=== PATIENT | male | born 1965 | race Hispanic/Latino ===

== ENCOUNTER 2024-11-11 16:32 | Inpatient (IN) | payer OTHER, BC ==
[~2024-11-11] VITALS: Ht 152.4 cm; Wt 68.3 kg
--- NOTE | 2024-11-11 17:03 | ERN ---
General Chief Complaint: Abdominal Pain Stated Complaint: ABDOMINAL PAIN Time Seen by MD: 16:36 Source: patient History of Present Illness Initial Comments Patient is a 59-year-old male coming in complaining of abdominal pain. Per patient he was seen by his PCP sent over to rule out appendicitis. Patient states he has a has a PCP evaluated at him because of the location of the pain in the right lower quadrant area concerns for appendicitis. Patient states that the pain began earlier today while moving furniture. No fever no chills nausea and vomiting patient is tolerating oral intake. Allergies: Coded Allergies: No Known Allergies (Unverified Allergy, Unknown, 11/11/24) Past Medical History Past Medical History: No Pertinent History Past Surgical History: None ROS Dictation CONSTITUTIONAL: No chills, no fever, no weakness, no diaphoresis, no malaise. HEAD/FACE: No signs of trauma. EENT: No eye pain, no blurred vision, no tearing, no double vision, no ear pain, no ear discharge, no nose pain, no nasal congestion, no throat pain, no throat swelling, no mouth pain. RESPIRATORY: No cough, no orthopnea, no SOB, no stridor, no wheezing. CARDIOVASCULAR: No chest pain, no edema, no palpitations, no syncope. GASTROINTESTINAL/ABDOMINAL: abdominal pain, no constipation, no diarrhea, no nausea, no vomiting. GENITOURINARY: No abnormal discharge, no dysuria, no frequent urination, no hematuria. No complaints of pain in the genitals. MUSCULOSKELETAL: No back pain, no gout, no joint pain, no joint swelling, no muscle pain, no muscle stiffness, no neck pain. INTEGUMENTARY: No change in color, no change in hair/nails, no dryness, no lesion, no lumps, no rash. NEUROLOGICAL/PSYCH: No anxiety, not depressed, no emotional problem, no headache, no numbness, no pre-existing deficit, no history of seizures, no tremors, no weakness. HEMATOLOGIC/LYMPHATIC: Not anemic, no history of blood clots, no apparent bleeding, no bruising, glands not swollen. All Systems Negative, Except as Noted. Physical Exam Physical Exam Dictation VITAL SIGNS: Reviewed. GENERAL APPEARANCE: Alert, oriented x3, no acute distress, obese. HEAD AND FACE: Non-traumatic. EYES: PERRL, pink conjunctivas, eyelid no trauma, anterior chamber clear. EARS: Pinnas intact and no signs of trauma or erythema. Ear canals clear and no discharge. TMs no erythema. NOSE: No discharge, no bleeding. OROPHARYNX: Mouth normal, teeth no caries, tongue pink. Pharynx clear, no erythema. Tonsils no exudates, no abscesses noted. Mucous membrane moist. NECK: Supple, non-tender, no thyromegaly, no masses, no JVD, no bruits. BREAST: Deferred. CHEST: No tenderness, no crepitus, no paradoxical movement, no retractions. LUNGS: Clear, well-ventilated, symmetric, no rales, no wheezing, no rhonchi, no stridor, good breath sounds bilaterally. HEART: Regular rate, regular rhythm, no murmur, no gallops. VASCULAR: No peripheral edema. ABDOMEN: Soft, positive bowel sounds, nondistended, no guarding, right lower quadrant tenderness, no rebound, no masses no hepatomegaly, no splenomegaly, no Koenig's sign, no hernias. RECTAL: Deferred. GENITAL: Deferred. NEUROLOGICAL: Normal speech, gross motor function intact, gross sensory function intact. MUSCULOSKELETAL: Neck nontender, full range of motion, back nontender, full range of motion. EXTREMITIES: Nontender, full range of motion. SKIN: Color pink, dry, no turgor, no rash, no lacerations, no abrasions, no contusions. LYMPHATICS: Deferred. Results Laboratory and Microbiology Lab and Micro Result Laboratory Tests Test 11/11/24 17:35 White Blood Count 9.9 K/uL (4.8-10.8) Red Blood Count 5.42 MIL/uL (4.50-6.20) Hemoglobin 15.8 g/dL (14.0-18.0) Hematocrit 47.6 % (42-54) Mean Corpuscular Volume 87.8 fL (79-99) Mean Corpuscular Hemoglobin 29.2 pg (27.0-33.0) Mean Corpuscular Hemoglobin Concent 33.2 g/dL (32.0-36.0) Red Cell Distribution Width 13.9 % (11.0-15.5) Platelet Count 262 K/uL (130-400) Mean Platelet Volume 10.8 fL (7.5-10.5) H Immature Granulocyte % (Auto) 0.3 % (0-1) Neutrophils (%) (Auto) 57.4 % (40.0-77.0) Lymphocytes (%) (Auto) 30.8 % (21.0-51.0) Monocytes (%) (Auto) 8.8 % (3.0-13.0) Eosinophils (%) (Auto) 1.8 % (0.0-8.0) Basophils (%) (Auto) 0.9 % (0.0-5.0) Neutrophils # (Auto) 5.7 K/uL (1.8-7.7) Lymphocytes # (Auto) 3.0 K/uL (1.0-4.8) Monocytes # (Auto) 0.9 K/uL (0.1-1.0) Eosinophils # (Auto) 0.18 K/uL (0.00-0.70) Basophils # (Auto) 0.09 K/uL (0.00-0.20) Absolute Immature Granulocyte (auto 0.03 K/uL (0-1) Nucleated Red Blood Cells 0.0 % (0.0-0.19) Sodium Level 138 mmol/L (136-145) Potassium Level 4.4 mmol/L (3.5-5.1) Chloride Level 100 mmol/L (101-111) L Carbon Dioxide Level 31 mmol/L (21-32) Blood Urea Nitrogen 20 mg/dL (7-18) H Creatinine 1.1 mg/dL (0.5-1.3) Glomerular Filtration Rate Calc 76 mL/min (>90) Random Glucose 92 mg/dL (70-105) Total Calcium 9.3 mg/dL (8.5-10.1) Labs Reviewed?: Yes EKG/XRAY/US/CT/MRI CT Scan Comment [place] [address] [place] [id number] IMAGING REPORT Signed PATIENT: CATERINA SHAH MR#: [id number] : 1965 SEX: M AGE: 59 LOCATION: [facility] ORDER 46 STATUS: REG ER REPORT#: [id number] SERVICE 45 REASON: rlq pain ORDERING PHYSICIAN: MAIA THOMAS MD PROCEDURE: ABD PEL WO - CT ABDOMEN/PELVIS W/O CONTRAST EXAM: CT Abdomen with or without Intravenous Contrast CLINICAL HISTORY: 59 year old male with right lower quadrant pain. TECHNIQUE: Axial computed tomography images of the abdomen with or without intravenous contrast. Dose reduction technique was used including one or more of the following: automated exposure control, adjustment of mA and kV according to patient size, and/or iterative reconstruction. CONTRAST: NONE COMPARISON: None provided. FINDINGS: LUNG BASES: No basilar airspace consolidation or pleural effusion. LIVER: Unremarkable. No focal lesions. GALLBLADDER AND BILE DUCTS: Unremarkable. No calcified stone. No ductal dilation. PANCREAS: Unremarkable. SPLEEN: Unremarkable. ADRENAL GLANDS: Unremarkable. KIDNEYS AND URETERS: Unremarkable. No hydronephrosis or nephrolithiasis. STOMACH AND BOWEL: No obstruction. No wall thickening. No CT evidence of colitis or acute diverticulitis. APPENDIX: Thickening of the arrington of the appendix with surrounding inflammation and an appendicolith seen, consistent with acute appendicitis. Negative for perforation or abscess. PERITONEUM: No free fluid. No free air. LYMPH NODES: No lymphadenopathy. VASCULATURE: No aortic aneurysm. ABDOMINAL WALL AND SOFT TISSUES: Unremarkable. BONES: No acute osseous abnormality. IMPRESSION: 1. Acute appendicitis with appendicolith. 2. No perforation or abscess. /[place] DICTATED BY: RODDY HUDSON MD DATE: 11/11/241900 ELECTRONICALLY SIGNED BY: RODDY HUDSON MD DATE: 11/11/241900 [facility] MDM: Differential diagnosis: Acute appendicitis, abdominal pain, gastritis, Rationale: Tests considered and ordered secondary to shared decision making include: Previous outside records reviewed: Old ER visits. Risk of complication and/or morbidity or mortality of patient management: None Medications-Per medication reconciliation Need for hospitalization: Patient does meet criteria for hospitalization. Need for emergency major/minor surgery: No There are no social concerns with this patient. Prescription drug management Prescriptions will include symptomatic care Patient's prior external medical records from other ER visits were reviewed by me as indicated. Prior testing and results from previous visits were reviewed. Prior tests were taken into account with medical decision making and resource utilization, independent historian/historians were used to obtain complete medical history. I independently interpreted the test that were performed, results were reviewed by me and considered findings on radiology if ordered. Medical management and examination interpretation discussions were had by me with other qualified healthcare professionals as indicated for the patient's care. Patient is a 59-year-old gentleman coming in complaining of right lower quadrant pain CT disclose acute appendicitis with appendicolith. Spoke to surgeon on-call Dr. Fagan who accepts patient for surgery in the a.m., patient will be admitted under the care of hospitalist group for ongoing management ED Course Orders Procedure Category Date Status Time Cbc With Differential LAB 11/11/24 Complete 16:46 Urinalysis Profile LAB 11/11/24 Logged 16:46 0.9%Nacl 1000ml (Ns PHA 11/11/24 Complete 1000ml) 17:00 Basic Metabolic Panel LAB 11/11/24 Complete 16:46 Ct Abdomen/Pelvis W/O CT 11/11/24 Resulted Contrast 16:46 Zosyn 3.375gm+Ns 50ml PHA 11/11/24 Complete (Zosyn 3.375gm+Ns 18:06 Zosyn 3.375gm+Ns 50ml PHA 11/11/24 Complete (Zosyn 3.375gm+Ns 18:30 Current Medications Medications (Trade) Dose Ordered Sig/Colleen Route PRN Reason Start Time Stop Time Status Last Admin Dose Admin Piperacillin Sod/ Tazobactam Sod 50 ml @ As Directed STK-MED ONCE .ROUTE 11/11/24 18:06 11/11/24 18:06 DC 11/11/24 18:12 Piperacillin Sod/ Tazobactam Sod (Zosyn 3.375gm+NS 50ml) 3.375 gm ONCE ONCE IV 11/11/24 18:30 11/11/24 18:07 DC Sodium Chloride 1,000 ml @ 0 mls/hr ONCE ONCE IV 11/11/24 17:00 11/11/24 17:01 DC 11/11/24 18:12 Vital Signs Date Time Temp Pulse Resp B/P (MAP) Pulse Ox O2 Delivery O2 Flow Rate FiO2 11/11/24 16:34 97.7 74 20 127/84 99 Room Air DX & DISP Disposition: Inpatient Decision to Admit Time: 18:19 Departure Impression: Primary Impression: Appendicitis, acute Condition: Stable Referrals: SELF,REFERRAL (PCP) MAIA THOMAS MD Nov 11, 2024 17:03
[2024-11-11 17:41] LABS: IMMATURE GRANULOCYTE ABSOLUTE 0.03 K/uL (0-1); NUCLEATED RED BLOOD CELLS 0.0 % (0.0-0.19); PLATELET COUNT (AUTO) 262 K/uL (130-400); RED BLOOD CELL COUNT(AUTO) 5.42 MIL/uL (4.50-6.20); RED CELL DISTRIBUTION WIDTH 13.9 % (11.0-15.5); WHITE BLOOD COUNT (AUTO) 9.9 K/uL (4.8-10.8)
--- NOTE | 2024-11-11 18:02 | HMCIMG ---
EXAM: CT Abdomen with or without Intravenous Contrast CLINICAL HISTORY: 59 year old male with right lower quadrant pain. TECHNIQUE: Axial computed tomography images of the abdomen with or without intravenous contrast. Dose reduction technique was used including one or more of the following: automated exposure control, adjustment of mA and kV according to patient size, and/or iterative reconstruction. CONTRAST: NONE COMPARISON: None provided. FINDINGS: LUNG BASES: No basilar airspace consolidation or pleural effusion. LIVER: Unremarkable. No focal lesions. GALLBLADDER AND BILE DUCTS: Unremarkable. No calcified stone. No ductal dilation. PANCREAS: Unremarkable. SPLEEN: Unremarkable. ADRENAL GLANDS: Unremarkable. KIDNEYS AND URETERS: Unremarkable. No hydronephrosis or nephrolithiasis. STOMACH AND BOWEL: No obstruction. No wall thickening. No CT evidence of colitis or acute diverticulitis. APPENDIX: Thickening of the arrington of the appendix with surrounding inflammation and an appendicolith seen, consistent with acute appendicitis. Negative for perforation or abscess. PERITONEUM: No free fluid. No free air. LYMPH NODES: No lymphadenopathy. VASCULATURE: No aortic aneurysm. ABDOMINAL WALL AND SOFT TISSUES: Unremarkable. BONES: No acute osseous abnormality. IMPRESSION: 1. Acute appendicitis with appendicolith. 2. No perforation or abscess. /[place]
[2024-11-11 18:04] LABS: CREATININE 1.1 mg/dL (0.5-1.3); GLOMERULAR FILTR. RATE CALC 76.0 mL/min (>90); GLUCOSE,RANDOM 92.0 mg/dL (70-105); SODIUM SERUM 138.0 mmol/L (136-145); UREA NITROGEN, BLOOD 20.0 mg/dL (7-18)
[2024-11-11] MEDS: ZOSYN 3.375GM+NS 50ML 50 ML ONE (18:12)
[2024-11-11] MEDS: 0.9%NACL 1000ML 1,000 ML IV ONE (18:12)
--- NOTE | 2024-11-11 18:26 | HP ---
History of Present Illness Reason for Visit: abdominal pain History of Present Illness Mr. Boo is a 59-year-old male that was seen and examined today on 11/11/2024. Patient is a good historian of personal health Patient states that he came emergency department with a chief complaint of abdominal pain. Onset was today at 8:00 a.m.. Location is right lower quadrant. Duration is on and off. Character is described as sharp. 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 There was no alleviating factors. Patient denies any associated nausea, vomiting or fever. Today in the emergency department CBC unremarkable, chemistry unremarkable, no urinalysis has been collected or sent to lab CT of abdomen and pelvis suggests appendicitis. Emergency room physician contacted general surgeon on-call, Dr. Fagan who requested for patient to be admitted under hospitalist service and he will surgically evaluated in the morning. Past Medical History ADDITIONAL PAST MEDICAL HISTORY: [Denies] SOCIAL HISTORY: [Negative for smoking, alcohol use, drug use, patient lives with his , Bárbara boo. Patient is typically independent of all his ADLs. Patient denies difficulty pain is bills.] SURGICAL HISTORY: [Denies] Review of Systems General: No Fever, No Chills, No Night Sweats, No Fatigue, No Malaise, No Appetite, No Other HEENT: No Head Aches, No Visual Changes, No Eye Pain, No Ear Pain, No Dysphasia, No Sinus Congestion, No Post Nasal Drip, No Sore Throat, No Other Pulmonary: No Dyspnea, No Cough, No Pleuritic Chest Pain, No Other Cardiovascular: No: Chest Pain, Palpitations, Orthopnea, Paroxysmal Noc. Dyspnea, Edema, Lt Headedness, Other Gastrointestinal: Abdominal Pain; No: Nausea, Vomiting, Diarrhea, Constipation, Melena, Hematochezia, Other Genitourinary: No Dysuria, No Frequency, No Incontinence, No Hematuria, No Retention, No Other Musculoskeletal: No: other, neck pain, shoulder pain, arm pain, back pain, hand pain, leg pain, foot pain Skin: No Urticaria, No Rash, No Other Neurological: No: Weakness, Numbness, Incoordination, Change in speech, Confusion, Seizures, Other Allergies: Coded Allergies: No Known Allergies (Unverified Allergy, Unknown, 11/11/24) No Active Prescriptions or Reported Meds Exam Vital Signs Vital Signs Date Time Temp Pulse Resp B/P (MAP) Pulse Ox O2 Delivery O2 Flow Rate FiO2 11/11/24 18:18 98.2 67 16 133/79 98 Room Air* 0 21 General Appearance: Alert, Oriented X3, Cooperative, No acute distress HEENT: Atraumatic, PERRLA, EOMI, Mucous membr. moist/pink Respiratory: Clear to auscultation, Normal air movement, NL respiratory effort Cardiovascular: Regular rate, Regular rhythm, Normal S1, Normal S2 Abdominal: Normal bowel sounds, Soft, Other (Positive right lower quadrant tenderness) Skin: No significant lesion Neuro: Normal gait, Normal speech, Strength at 5/5 X4 ext, Sensation intact, Cranial nerves 3-12 NL Psych/Mental Status: Mental status NL, Mood NL, Thoughts/Content NL Assessment/Plan ASSESSMENT: [ Acute appendicitis, POA] PLAN: [ Admit patient to medical floor as inpatient status. Patient will be followed by General surgery Service, Dr. Fagan Keep patient NPO IV fluid maintenance therapy lactated Ringer's at 75 mL/HR Check preprocedure labs, CBC, BMP, magnesium, phosphorus, PTT, UA, type and screen, EKG, CXR As needed analgesia with morphine Empiric antibiotic therapy with Zosyn GI prophylaxis, famotidine DVT prophylaxis, Ludwin's and SCDs ADVANCED CARE PLANNING 1. Which of the following were discussed? Hospice Care - Yes Therapeutic options - yes Advance Directives - Yes - patient states he does not have any advance directives in place at this time, however his can make decisions for him if he becomes unable. Other discussions - patient wishes to remain a full code at this time 2. Discussed with who? Patient 3. Voluntary nature of this service was explained to the patient? Yes 4. Amount of time spent - ___16 minutes____ 5. Reviewed by Physician? (if this service was performed by NPP) Yes This document was generated in part using voice recognition software, occasional wrong word or sound alike substitutions may have occurred due to the inherent limitations of voice recognition software. Read the chart carefully and recognize using context, where the substitutions have occurred. Although every effort was made to edit the content, gemologist and typing errors may occur ATTESTATION BY PHYSICIAN I have seen and examined the patient. I reviewed the documentation, medical decision making, and treatment plan as noted by the mid-level provider above. I agree with the findings and plan of care. ] JOSE GARCIA [facility] Nov 11, 2024 18:26
[2024-11-11] MEDS ORDERED: ZOSYN 3.375GM +NS 50ML IV ONE (18:30)
[2024-11-11] MEDS ORDERED: ZOSYN 3.375GM +NS 50ML IV SCH (18:30)
[2024-11-11] MEDS: LACTATED RINGERS 1000ML 1,000 ML IV SCH (18:54)
[2024-11-11 20:28] LABS: APPEARANCE,URINE CLEAR (CLEAR); GLUCOSE, URINE (UA) NEGATIVE (NEGATIVE); LEUKOCYTE ESTERASE ,URINE NEGATIVE Leu/uL (NEGATIVE); NITRATE,URINE NEGATIVE (NEGATIVE); OCCULT BLOOD,URINE +- (TRACE) (NEGATIVE)
[2024-11-11 20:33] LABS: ADD UA MICROSCOPIC YES
--- NOTE | 2024-11-11 22:17 | NUR ---
REPORT GIVEN TO NURSE LISA, ALL QUESTIONS ANSWERED AT THIS TIME
[2024-11-11 22:30] VITALS: BP 128/84; PULSE 58; RESP 20; TEMP 97.7
[2024-11-11 23:12] VITALS: O2SAT 99
[2024-11-12] VITALS (29 sets, daily range): BP systolic 100–146; BP diastolic 59–91; PULSE 50–93; RESP 10–18; TEMP 97.1–99; O2SAT 97
[2024-11-12] MEDS: ZOSYN 3.375GM +NS 50ML IV SCH (02:26)
[2024-11-12 06:16] LABS: IMMATURE GRANULOCYTE ABSOLUTE 0.02 K/uL (0-1); NUCLEATED RED BLOOD CELLS 0.0 % (0.0-0.19); PLATELET COUNT (AUTO) 247 K/uL (130-400); RED BLOOD CELL COUNT(AUTO) 5.15 MIL/uL (4.50-6.20); RED CELL DISTRIBUTION WIDTH 13.8 % (11.0-15.5); WHITE BLOOD COUNT (AUTO) 7.8 K/uL (4.8-10.8)
[2024-11-12 06:23] LABS: CREATININE 1.1 mg/dL (0.5-1.3); GLOMERULAR FILTR. RATE CALC 76.0 mL/min (>90); GLUCOSE,RANDOM 98.0 mg/dL (70-105); PHOSPHORUS 4.3 mg/dL (2.5-4.9); SODIUM SERUM 139.0 mmol/L (136-145); UREA NITROGEN, BLOOD 15.0 mg/dL (7-18)
--- NOTE | 2024-11-12 06:33 | EKG ---
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
[2024-11-12 06:57] LABS: INR 0.98 (0.85-1.15)
--- NOTE | 2024-11-12 07:23 | HMCIMG ---
EXAM: CR Chest, single view CLINICAL HISTORY: Preprocedural COMPARISON: Prior radiograph dated 18 April 2010. FINDINGS: The lungs show no infiltrate or other acute findings. No pleural effusion or pneumothorax. The cardiomediastinal silhouette is within normal limits. No acute osseous abnormality. IMPRESSION: No acute cardiopulmonary pathology is evident. Compared to the prior study, there is no significant interval change. /[place]
[2024-11-12] MEDS: FAMOTIDINE 20MG VIAL IV SCH (08:42)
--- NOTE | 2024-11-12 10:11 | NUR ---
DCP:HOME Pt currently lives with his Bárbara [id number]. Pt does not report having any DME, home health, or provider services. Pt states that he is able to complete ADLs independently. PCP is Dr. Higinio Arshad and [facility] any [facility] needs. At [place] pt will want to go home and family can assist with transportation. Addendum: 11/12/24 at 1015 by WILMAR UPTON SS Amended: Links added.
--- NOTE | 2024-11-12 11:34 | PN ---
[facility] PROGRESS NOTE Date of Service: Nov 12, 2024 Time of Service: 11:32 SUBJECTIVE: [ ] Patient states that he came emergency department with a chief complaint of abdominal pain. Onset was today at 8:00 a.m.. Location is right lower quadrant. Duration is on and off. Character is described as sharp. 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 There was no alleviating factors. Patient denies any associated nausea, vomiting or fever. Workup in ED was consistent for appendicitis. Dr. Fagan is planning to schedule him for surgery today. Discussed the risk in benefits of surgery verbalized understanding. Encourage early ambulation and deep breathing postprocedure verbalized understanding REVIEW OF SYSTEMS CONSTITUTIONAL: Denies fevers, chills, or night sweats. No unintentional weight loss reported. NEUROLOGICAL: Denies headache, amaurosis fugax, motor weakness, sensory deficit, vertigo/spinning sensation, gait abnormalities, or tremors. ENT: No hearing loss, otalgia, otorrhea, rhinitis, rhinorrhea, hoarseness, or sore throat. CARDIOVASCULAR: Denies any exertional angina, dyspnea on exertion, orthopnea, paroxysmal nocturnal dyspnea, palpitations, life-threatening arrhythmias, claudication. PULMONARY: Denies any shortness of breath, cough, phlegm/sputum, hemoptysis, pleuritic chest pain. SLEEP: Denies morning headaches, daytime somnolence or napping. Denies difficulty falling asleep, staying asleep, waking from sleep. Denies knowledge of snoring. GASTROINTESTINAL: Denies any type of dysphagia to either liquids or solids. Denies nausea, vomiting, pyrosis, early satiety, abdominal pain, diarrhea, constipation, or changes in stool consistency or caliber. Denies coffee-ground emesis, hematemesis, hematochezia, or melanotic stools. GENITOURINARY: Denies frequency, urgency, nocturia, hematuria or incontinence (Storage/Irritative symptoms.) Low urinary stream, straining to void, urinary intermittency or hesitancy, splitting of the voiding stream, terminal dribbling. ENDOCRINOLOGIC: Denies polyuria, polydipsia, polyphagia or heat/cold intolerances. HEMATOLOGIC: Denies thrombophilia/previous clots, or coagulopathy/bleeding disorders. ONCOLOGIC: Denies personal history of malignancy. DERMATOLOGIC: Denies rashes or pruritus. PSYCHIATRIC: Denies any suicidal or homicidal ideation. Denies hallucinations. PHYSICAL EXAM GENERAL APPEARANCE: The patient is awake, alert, and oriented, in no acute cardiopulmonary distress. NEUROLOGICAL: Cranial nerves II-XII grossly intact. Motor is 5/5 in bilateral upper and lower extremities proximal to distal. No sensory deficits. HEENT: Face is symmetric. Pupils are equal and reactive. Extraocular movements are intact. NECK: Supple. No JVD. No thyromegaly. No submental, submandibular, pre- /postauricular, occipital or supraclavicular lymphadenopathy. CHEST: Normal chest expansion. No Telemetry. LUNGS: Absence of any rales, rhonchi or any wheezing. CARDIOVASCULAR: Regular. S1 and S2 normal. No appreciable rubs, murmurs or gallops. ABDOMEN: Soft, nontender, and nondistended. There is no rebound, voluntary guarding, or rigidity. : Deferred. No Hopper. EXTREMITIES: Non-edematous and not cyanotic. No clubbing. Good capillary refill. SKIN: No skin breakdown. Vital Signs (last 8hr) Date Time Temp Pulse Resp B/P (MAP) Pulse Ox O2 Delivery O2 Flow Rate FiO2 11/12/24 11:05 97.2 72 18 115/71 99 Room Air 11/12/24 08:02 97 Room Air* 0 21 11/12/24 07:48 97.5 71 18 111/67 97 Room Air LABS: Laboratory: Test 11/12/24 05:59 11/11/24 20:14 Range/Units White Blood Count 7.8 4.8-10.8 K/uL Red Blood Count 5.15 4.50-6.20 MIL/uL Hemoglobin 14.9 14.0-18.0 g/dL Hematocrit 45.0 42-54 % Mean Corpuscular Volume 87.4 79-99 fL Mean Corpuscular Hemoglobin 28.9 27.0-33.0 pg Mean Corpuscular Hemoglobin Concent 33.1 32.0-36.0 g/dL Red Cell Distribution Width 13.8 11.0-15.5 % Platelet Count 247 130-400 K/uL Mean Platelet Volume 11.2 H 7.5-10.5 fL Immature Granulocyte % (Auto) 0.3 0-1 % Neutrophils (%) (Auto) 54.3 40.0-77.0 % Lymphocytes (%) (Auto) 34.6 21.0-51.0 % Monocytes (%) (Auto) 7.2 3.0-13.0 % Eosinophils (%) (Auto) 2.7 0.0-8.0 % Basophils (%) (Auto) 0.9 0.0-5.0 % Neutrophils # (Auto) 4.2 1.8-7.7 K/uL Lymphocytes # (Auto) 2.7 1.0-4.8 K/uL Monocytes # (Auto) 0.6 0.1-1.0 K/uL Eosinophils # (Auto) 0.21 0.00-0.70 K/uL Basophils # (Auto) 0.07 0.00-0.20 K/uL Absolute Immature Granulocyte (auto 0.02 0-1 K/uL Nucleated Red Blood Cells 0.0 0.0-0.19 % Prothrombin Time 10.4 9.6-11.6 SEC Prothromb Time International Ratio 0.98 0.85-1.15 Activated Partial Thromboplast Time 30.3 26.3-35.5 SEC Sodium Level 139 136-145 mmol/L Potassium Level 4.0 3.5-5.1 mmol/L Chloride Level 105 101-111 mmol/L Carbon Dioxide Level 26 21-32 mmol/L Blood Urea Nitrogen 15 7-18 mg/dL Creatinine 1.1 0.5-1.3 mg/dL Glomerular Filtration Rate Calc 76 >90 mL/min Random Glucose 98 70-105 mg/dL Total Calcium 8.4 L 8.5-10.1 mg/dL Phosphorus Level 4.3 2.5-4.9 mg/dL Magnesium Level 2.30 1.80-2.40 mg/dL Urine Color COLORLESS YELLOW Urine Appearance CLEAR CLEAR Urine pH 6.0 5.0-8.0 Urine Specific [place] 1.008 1.001-1.031 Urine Protein NEGATIVE NEGATIVE mg/dL Urine Glucose (UA) NEGATIVE NEGATIVE mg/dL Urine Ketones NEGATIVE NEGATIVE mg/dL Urine Occult Blood +- (TRACE) H NEGATIVE Urine Nitrate NEGATIVE NEGATIVE Urine Bilirubin NEGATIVE NEGATIVE mg/dL Urine Urobilinogen 0.2 0.2-1.0 mg/dL Urine Leukocyte Esterase NEGATIVE NEGATIVE Ryan/uL Urine RBC 2-5 H 0-1 /HPF Urine WBC 0-1 0-1 /HPF Urine Bacteria RARE None Seen /HPF Current Medications Medications (Trade) Dose Ordered Sig/Colleen Route PRN Reason Start Time Stop Time Status Last Admin Dose Admin Acetaminophen (TYLenol 325MG TAB) 650 mg Q6H PRN PO TEMPERATURE GREATER THAN 101.5 11/11/24 20:00 12/11/24 19:59 Acetaminophen (TYLenol 650MG SUPPOSITORY) 650 mg Q6H PRN RC MILD PAIN (1-3) 11/11/24 20:00 12/11/24 19:59 Famotidine (Pepcid 20mg Vial) 20 mg DAILY IV 11/12/24 09:00 12/12/24 08:59 11/12/24 08:42 20 MG Hydralazine HCl (APRESOLine 20MG INJ) 10 mg Q6H PRN IV For:SBP above 160;DBP above 90 11/11/24 20:00 12/11/24 19:59 Lactated Ringer's 1,000 ml @ 75 mls/hr [id number] IV 11/11/24 18:30 12/11/24 18:29 11/12/24 08:44 75 MLS/HR Morphine Sulfate (morPHINE 2MG SYG) 2 mg Q4H PRN IVP SEVERE PAIN (7-10) 11/11/24 20:00 11/18/24 19:59 Ondansetron HCl (zoFRAN 4MG INJ) 4 mg Q6H PRN IV NAUSEA/VOMITING 11/11/24 20:00 12/11/24 19:59 Piperacillin Sod/ Tazobactam Sod (Zosyn 3.375gm+NS 50ml) 3.375 gm Q8H IV 11/11/24 18:30 11/11/24 18:31 DC Piperacillin Sod/ Tazobactam Sod (Zosyn 3.375gm+NS 50ml) 3.375 gm Q8H IV 11/12/24 02:30 11/22/24 02:29 11/12/24 08:56 3.375 GM DIAGNOSTICS / RADIOLOGY: [ ] ASSESSMENT: [ ]Acute appendicitis, POA] PLAN: [ ] Admit patient to medical floor as inpatient status. Patient will be followed by General surgery Service, Dr. Fagan Keep patient NPO Procedure appendectomy scheduled for today IVF's; lactated Ringer's at 75 mL/HR Labs in am cbc, cmp mag As needed analgesia with morphine Empiric antibiotic therapy with Zosyn GI prophylaxis, famotidine DVT prophylaxis, Ludwin's and SCDs ATTESTATION BY PHYSICIAN I have seen and examined the patient. I reviewed the documentation, medical decision making, and treatment plan as noted by the mid-level provider above. I agree with the findings and plan of care. DELFINO OCASIO MD, ELIZABETH NP Nov 12, 2024 11:34
[2024-11-12] MEDS ORDERED: MIDAZOLAM HCL 1 MG/ML 2ML VIAL ONE (11:41)
[2024-11-12] MEDS ORDERED: LIDOCAINE PF 100MG/5ML (2%) SYRINGE 5ML ONE (11:41)
[2024-11-12] MEDS ORDERED: GLYCOPYRROLATE 0.2 MG/ML 5 ML VIAL ONE (12:49)
[2024-11-12] MEDS ORDERED: NEOSTIGMINE METHYLSULFATE 1MG/ML IV ONE (12:49)
--- NOTE | 2024-11-12 12:55 | CONS ---
GENERAL SURGERY CONSULTATION NOTE Date/Time Patient Seen: [ ] Requesting Physician: [ ] Reason for Consultation: [ ] History of Present Illness: pt that started with RLQ pain yesterday. did not resolve and came to ER found to have appendicitis Past Medical History: denies any Past Surgical History: denies Habits: [Never] smoker. [Denies] alcohol consumption. [Denies] illicit drug use Current Medications Medications (Trade) Dose Ordered Sig/Colleen Route Start Time Stop Time Status Last Admin Dose Admin Famotidine (Pepcid 20mg Vial) 20 mg DAILY IV 11/12/24 09:00 12/12/24 08:59 11/12/24 08:42 20 MG Lactated Ringer's 1,000 ml @ 75 mls/hr [id number] IV 11/11/24 18:30 12/11/24 18:29 11/12/24 08:44 75 MLS/HR Piperacillin Sod/ Tazobactam Sod (Zosyn 3.375gm+NS 50ml) 3.375 gm Q8H IV 11/11/24 18:30 11/11/24 18:31 DC Piperacillin Sod/ Tazobactam Sod (Zosyn 3.375gm+NS 50ml) 3.375 gm Q8H IV 11/12/24 02:30 11/22/24 02:29 11/12/24 08:56 3.375 GM Review of Systems: denies any chest pain, no SOB, Physical Examination: GENERAL: [No acute distress.] HEAD: [Normal with no signs of head trauma.] EYES: [PERRLA NECK: trachea midline LUNGS: no distress HEART: [Normal rate and rhythm. ABD: [Bowel sounds normal, soft, RLQ tender + [place] EXT: [No edema.] SKIN: [No rashes or lesions noted. NEURO: [Awake, alert, and oriented x3 Vital Signs (last 8hr) Date Time Temp Pulse Resp B/P (MAP) Pulse Ox O2 Delivery O2 Flow Rate FiO2 11/12/24 11:05 97.2 72 18 115/71 99 Room Air 11/12/24 08:02 97 Room Air* 0 21 11/12/24 07:48 97.5 71 18 111/67 97 Room Air Laboratory: [ ] Hematology Labs: Test 11/12/24 05:59 Range/Units White Blood Count 7.8 4.8-10.8 K/uL Red Blood Count 5.15 4.50-6.20 MIL/uL Hemoglobin 14.9 14.0-18.0 g/dL Hematocrit 45.0 42-54 % Mean Corpuscular Volume 87.4 79-99 fL Mean Corpuscular Hemoglobin 28.9 27.0-33.0 pg Mean Corpuscular Hemoglobin Concent 33.1 32.0-36.0 g/dL Red Cell Distribution Width 13.8 11.0-15.5 % Platelet Count 247 130-400 K/uL Mean Platelet Volume 11.2 H 7.5-10.5 fL Immature Granulocyte % (Auto) 0.3 0-1 % Neutrophils (%) (Auto) 54.3 40.0-77.0 % Lymphocytes (%) (Auto) 34.6 21.0-51.0 % Monocytes (%) (Auto) 7.2 3.0-13.0 % Eosinophils (%) (Auto) 2.7 0.0-8.0 % Basophils (%) (Auto) 0.9 0.0-5.0 % Neutrophils # (Auto) 4.2 1.8-7.7 K/uL Lymphocytes # (Auto) 2.7 1.0-4.8 K/uL Monocytes # (Auto) 0.6 0.1-1.0 K/uL Eosinophils # (Auto) 0.21 0.00-0.70 K/uL Basophils # (Auto) 0.07 0.00-0.20 K/uL Absolute Immature Granulocyte (auto 0.02 0-1 K/uL Nucleated Red Blood Cells 0.0 0.0-0.19 % Chemistry Labs: Test 11/12/24 05:59 Range/Units Sodium Level 139 136-145 mmol/L Potassium Level 4.0 3.5-5.1 mmol/L Chloride Level 105 101-111 mmol/L Carbon Dioxide Level 26 21-32 mmol/L Blood Urea Nitrogen 15 7-18 mg/dL Creatinine 1.1 0.5-1.3 mg/dL Glomerular Filtration Rate Calc 76 >90 mL/min Random Glucose 98 70-105 mg/dL Total Calcium 8.4 L 8.5-10.1 mg/dL Phosphorus Level 4.3 2.5-4.9 mg/dL Magnesium Level 2.30 1.80-2.40 mg/dL Coagulation Labs: Test 11/12/24 05:59 Range/Units Prothrombin Time 10.4 9.6-11.6 SEC Prothromb Time International Ratio 0.98 0.85-1.15 Activated Partial Thromboplast Time 30.3 26.3-35.5 SEC Diagnostics / Radiology: [Copy/Paste Echos/Imaging Report here] Assessment: acute appendicitis Plan: lap appy poss open, discussed all risk and agrees to proceed. HUSSEIN LOPEZ MD Nov 12, 2024 12:55
--- NOTE | 2024-11-12 12:56 | OP ---
Operative Note: DATE OF PROCEDURE: 11/12/24 SURGEON: HUSSEIN LOPEZ MD PROCEDURE:Laparoscopic appendectomy. ANESTHESIA: General endotracheal. PREOPERATIVE DIAGNOSIS: Appendicitis. POSTOPERATIVE DIAGNOSIS: Acute appendicitis without perforation. DEVICES LEFT IN PLACE: None. FLUID AND BLOOD PRODUCTS: Per anesthesia report. BLOOD LOSS: Minimal. SPECIMENS REMOVED: Appendix. COMPLICATIONS: None immediate. SURGEON: Hussein Lopez MD. DESCRIPTION OF PROCEDURE: The patient was brought to the operating room and placed on the operating table in supine position where general endotracheal anesthesia was achieved. We then proceeded to prep and drape the abdomen in sterile fashion, created a longitudinal incision at the umbilicus, and dissected down through the skin, subcutaneous tissue, and fascia to expose the fascia and incise the fascia at the midline using a #15 blade and entered the abdominal cavity. We introduced a trocar, obtained pneumoperitoneum, and then under dir ect visualization, we proceeded to place two 5-mm trocars, one in the suprapubic position and the other in the left lower quadrant. We then proceeded to evaluate the pelvis. We evaluated the appendix and it has changes of acute appendicitis. We therefore proceeded to release the appendix from all its adhesions using blunt and sharp dissection with a LigaSure and then proceeded to create a window at the base of the appendix with a [place] dissector and divided the mesoappendix with the LigaSure device. Once the base of the appendix was free, we then proceeded to divide the appendix with the Brea vascular load stapler. Placed the appendix into the Endo Catch bag. We inspected the pelvis again and we did not find any signs of an abscess or any other signs of infection. Then, under direct visualization, we proceeded to remove our trocars and there was no bleeding from the abdominal wall. We removed the appendix from the abdomen using the EndoCatch bag and relieved the pneumoperitoneum. We closed the fascia at the umbilicus using a 0-Vicryl stitch in the [id number] fashion and then the skin was closed using a skin stapler . The patient tolerated the procedure well. I was present as well during the entire procedure. All counts were correct x 2 at the end of the procedure. HUSSEIN LOPEZ MD Nov 12, 2024 12:56
[2024-11-12] MEDS: SIMETHICONE 80 MG TAB.CHEW PO SCH (21:20)
[2024-11-13 03:59] VITALS: BP 99/60; PULSE 50; RESP 18; TEMP 98.2
[2024-11-13 06:33] LABS: ASPARTATE AMINOTRANSFERASE 14.0 U/L (10-37); CREATININE 1.1 mg/dL (0.5-1.3); GLOMERULAR FILTR. RATE CALC 76.0 mL/min (>90); GLUCOSE,RANDOM 133.0 mg/dL (70-105); SODIUM SERUM 137.0 mmol/L (136-145); TOTAL PROTEIN, SERUM 6.5 g/dL (6.0-8.3); UREA NITROGEN, BLOOD 12.0 mg/dL (7-18)
[2024-11-13 07:50] VITALS: O2SAT 99
[2024-11-13 08:00] VITALS: BP 102/61; PULSE 64; RESP 17; TEMP 97.8
--- NOTE | 2024-11-13 09:14 | PN ---
[facility] PROGRESS NOTE Date of Service: Nov 13, 2024 Time of Service: 09:13 SUBJECTIVE: [ ] Patient states that he came emergency department with a chief complaint of abdominal pain. Onset was today at 8:00 a.m.. Location is right lower quadrant. Duration is on and off. Character is described as sharp. 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 There was no alleviating factors. Patient denies any associated nausea, vomiting or fever. Workup in ED was consistent for appendicitis. Dr. Fagan is planning to schedule him for surgery today. Discussed the risk in benefits of surgery verbalized understanding. Encourage early ambulation and deep breathing postprocedure verbalized understanding 11/13/ REVIEW OF SYSTEMS CONSTITUTIONAL: Denies fevers, chills, or night sweats. No unintentional weight loss reported. NEUROLOGICAL: Denies headache, amaurosis fugax, motor weakness, sensory deficit, vertigo/spinning sensation, gait abnormalities, or tremors. ENT: No hearing loss, otalgia, otorrhea, rhinitis, rhinorrhea, hoarseness, or sore throat. CARDIOVASCULAR: Denies any exertional angina, dyspnea on exertion, orthopnea, paroxysmal nocturnal dyspnea, palpitations, life-threatening arrhythmias, claudication. PULMONARY: Denies any shortness of breath, cough, phlegm/sputum, hemoptysis, pleuritic chest pain. SLEEP: Denies morning headaches, daytime somnolence or napping. Denies difficulty falling asleep, staying asleep, waking from sleep. Denies knowledge of snoring. GASTROINTESTINAL: Denies any type of dysphagia to either liquids or solids. Denies nausea, vomiting, pyrosis, early satiety, abdominal pain, diarrhea, constipation, or changes in stool consistency or caliber. Denies coffee-ground emesis, hematemesis, hematochezia, or melanotic stools. GENITOURINARY: Denies frequency, urgency, nocturia, hematuria or incontinence (Storage/Irritative symptoms.) Low urinary stream, straining to void, urinary intermittency or hesitancy, splitting of the voiding stream, terminal dribbling. ENDOCRINOLOGIC: Denies polyuria, polydipsia, polyphagia or heat/cold intolerances. HEMATOLOGIC: Denies thrombophilia/previous clots, or coagulopathy/bleeding disorders. ONCOLOGIC: Denies personal history of malignancy. DERMATOLOGIC: Denies rashes or pruritus. PSYCHIATRIC: Denies any suicidal or homicidal ideation. Denies hallucinations. PHYSICAL EXAM GENERAL APPEARANCE: The patient is awake, alert, and oriented, in no acute cardiopulmonary distress. NEUROLOGICAL: Cranial nerves II-XII grossly intact. Motor is 5/5 in bilateral upper and lower extremities proximal to distal. No sensory deficits. HEENT: Face is symmetric. Pupils are equal and reactive. Extraocular movements are intact. NECK: Supple. No JVD. No thyromegaly. No submental, submandibular, pre- /postauricular, occipital or supraclavicular lymphadenopathy. CHEST: Normal chest expansion. No Telemetry. LUNGS: Absence of any rales, rhonchi or any wheezing. CARDIOVASCULAR: Regular. S1 and S2 normal. No appreciable rubs, murmurs or gallops. ABDOMEN: Soft, nontender, and nondistended. There is no rebound, voluntary guarding, or rigidity. : Deferred. No Hopper. EXTREMITIES: Non-edematous and not cyanotic. No clubbing. Good capillary refill. SKIN: No skin breakdown. Vital Signs (last 8hr) Date Time Temp Pulse Resp B/P (MAP) Pulse Ox O2 Delivery O2 Flow Rate FiO2 11/13/24 08:00 97.9 64 17 102/61 96 Room Air 11/13/24 03:59 98.2 50 18 99/60 96 Room Air LABS: Laboratory: Test 11/13/24 05:54 11/12/24 05:59 11/11/24 20:14 Range/Units Sodium Level 137 136-145 mmol/L Potassium Level 4.3 3.5-5.1 mmol/L Chloride Level 101 101-111 mmol/L Carbon Dioxide Level 29 21-32 mmol/L Blood Urea Nitrogen 12 7-18 mg/dL Creatinine 1.1 0.5-1.3 mg/dL Glomerular Filtration Rate Calc 76 >90 mL/min Random Glucose 133 H 70-105 mg/dL Total Calcium 8.8 8.5-10.1 mg/dL Total Bilirubin 0.7 0.2-1.0 mg/dL Aspartate Amino Transf (AST/SGOT) 14 10-37 U/L Alanine Aminotransferase (ALT/SGPT) 33 12-78 U/L Alkaline Phosphatase 44 L 50-136 U/L Total Protein 6.5 6.0-8.3 g/dL Albumin 3.1 L 3.5-5.0 g/dL White Blood Count 7.8 4.8-10.8 K/uL Red Blood Count 5.15 4.50-6.20 MIL/uL Hemoglobin 14.9 14.0-18.0 g/dL Hematocrit 45.0 42-54 % Mean Corpuscular Volume 87.4 79-99 fL Mean Corpuscular Hemoglobin 28.9 27.0-33.0 pg Mean Corpuscular Hemoglobin Concent 33.1 32.0-36.0 g/dL Red Cell Distribution Width 13.8 11.0-15.5 % Platelet Count 247 130-400 K/uL Mean Platelet Volume 11.2 H 7.5-10.5 fL Immature Granulocyte % (Auto) 0.3 0-1 % Neutrophils (%) (Auto) 54.3 40.0-77.0 % Lymphocytes (%) (Auto) 34.6 21.0-51.0 % Monocytes (%) (Auto) 7.2 3.0-13.0 % Eosinophils (%) (Auto) 2.7 0.0-8.0 % Basophils (%) (Auto) 0.9 0.0-5.0 % Neutrophils # (Auto) 4.2 1.8-7.7 K/uL Lymphocytes # (Auto) 2.7 1.0-4.8 K/uL Monocytes # (Auto) 0.6 0.1-1.0 K/uL Eosinophils # (Auto) 0.21 0.00-0.70 K/uL Basophils # (Auto) 0.07 0.00-0.20 K/uL Absolute Immature Granulocyte (auto 0.02 0-1 K/uL Nucleated Red Blood Cells 0.0 0.0-0.19 % Prothrombin Time 10.4 9.6-11.6 SEC Prothromb Time International Ratio 0.98 0.85-1.15 Activated Partial Thromboplast Time 30.3 26.3-35.5 SEC Phosphorus Level 4.3 2.5-4.9 mg/dL Magnesium Level 2.30 1.80-2.40 mg/dL Urine Color COLORLESS YELLOW Urine Appearance CLEAR CLEAR Urine pH 6.0 5.0-8.0 Urine Specific [place] 1.008 1.001-1.031 Urine Protein NEGATIVE NEGATIVE mg/dL Urine Glucose (UA) NEGATIVE NEGATIVE mg/dL Urine Ketones NEGATIVE NEGATIVE mg/dL Urine Occult Blood +- (TRACE) H NEGATIVE Urine Nitrate NEGATIVE NEGATIVE Urine Bilirubin NEGATIVE NEGATIVE mg/dL Urine Urobilinogen 0.2 0.2-1.0 mg/dL Urine Leukocyte Esterase NEGATIVE NEGATIVE Ryan/uL Urine RBC 2-5 H 0-1 /HPF Urine WBC 0-1 0-1 /HPF Urine Bacteria RARE None Seen /HPF Current Medications Medications (Trade) Dose Ordered Sig/Colleen Route PRN Reason Start Time Stop Time Status Last Admin Dose Admin Acetaminophen (TYLenol 325MG TAB) 650 mg Q6H PRN PO TEMPERATURE GREATER THAN 101.5 11/11/24 20:00 12/11/24 19:59 Acetaminophen (TYLenol 650MG SUPPOSITORY) 650 mg Q6H PRN RC MILD PAIN (1-3) 11/11/24 20:00 12/11/24 19:59 Acetaminophen/ Codeine Phosphate (TYLenol-coDEINE TAB) 1 tab Q4H PRN PO MODERATE PAIN (4-6) 11/12/24 17:30 12/12/24 17:29 Famotidine (Pepcid 20mg Vial) 20 mg DAILY IV 11/12/24 09:00 12/12/24 08:59 11/12/24 08:42 20 MG Hydralazine HCl (APRESOLine 20MG INJ) 10 mg Q6H PRN IV For:SBP above 160;DBP above 90 11/11/24 20:00 12/11/24 19:59 Ibuprofen (moTRIN) 800 mg Q8H PO 11/12/24 14:30 12/12/24 14:29 11/13/24 06:18 800 MG Lactated Ringer's 1,000 ml @ 75 mls/hr [id number] IV 11/11/24 18:30 12/11/24 18:29 11/12/24 21:21 75 MLS/HR Morphine Sulfate (morPHINE 2MG SYG) 2 mg Q4H PRN IVP SEVERE PAIN (7-10) 11/11/24 20:00 11/18/24 19:59 Ondansetron HCl (zoFRAN 4MG INJ) 4 mg Q6H PRN IV NAUSEA/VOMITING 11/11/24 20:00 12/11/24 19:59 Piperacillin Sod/ Tazobactam Sod (Zosyn 3.375gm+NS 50ml) 3.375 gm Q8H IV 11/11/24 18:30 11/11/24 18:31 DC Piperacillin Sod/ Tazobactam Sod (Zosyn 3.375gm+NS 50ml) 3.375 gm Q8H IV 11/12/24 02:30 11/22/24 02:29 11/13/24 02:23 3.375 GM Simethicone (Mylicon) 80 mg Q8H6 PO 11/12/24 22:00 12/12/24 21:59 11/13/24 06:18 80 MG DIAGNOSTICS / RADIOLOGY: [ ] ASSESSMENT: [ ]Acute appendicitis, POA] PLAN: [ ] Admit patient to medical floor as inpatient status. Patient will be followed by General surgery Service, Dr. Fagan Keep patient NPO Procedure appendectomy scheduled for today IVF's; lactated Ringer's at 75 mL/HR Labs in am cbc, cmp mag As needed analgesia with morphine Empiric antibiotic therapy with Zosyn GI prophylaxis, famotidine DVT prophylaxis, Ludwin's and SCDs ATTESTATION BY PHYSICIAN I have seen and examined the patient. I reviewed the documentation, medical decision making, and treatment plan as noted by the mid-level provider above. I agree with the findings and plan of care. DELFINO OCASIO MD, ELIZABETH NP Nov 13, 2024 09:13
--- NOTE | 2024-11-13 11:03 | DS ---
Discharge Summary Hospital Course Summary: Patient states that he came emergency department with a chief complaint of abdominal pain. Onset was today at 8:00 a.m.. Location is right lower quadrant. Duration is on and off. Character is described as sharp. 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 There was no alleviating factors. Patient denies any associated nausea, vomiting or fever. Workup in ED was consistent for appendicitis. Dr. Kong is planning to schedule him for surgery today. Discussed the risk in benefits of surgery verbalized understanding. Encourage early ambulation and deep breathing postprocedure verbalized understanding 11/13/patient recuperating well postop day one appendectomy tolerating diet no nausea no vomiting or abdominal pain patient has been cleared by surgery we will follow-up in one-week postoperative visit. Patient was advised no heavy lifting greater than 10 lb keep incisions clean and dry patient is hemodynamically stable Airport Manager(s): PHYSICAL EXAM GENERAL APPEARANCE: The patient is awake, alert, and oriented, in no acute cardiopulmonary distress. NEUROLOGICAL: Cranial nerves II-XII grossly intact. Motor is 5/5 in bilateral upper and lower extremities proximal to distal. No sensory deficits. HEENT: Face is symmetric. Pupils are equal and reactive. Extraocular movements are intact. NECK: Supple. No JVD. No thyromegaly. No submental, submandibular, pre- /postauricular, occipital or supraclavicular lymphadenopathy. CHEST: Normal chest expansion. No Telemetry. LUNGS: Absence of any rales, rhonchi or any wheezing. CARDIOVASCULAR: Regular. S1 and S2 normal. No appreciable rubs, murmurs or gallops. ABDOMEN: Soft, nontender, and nondistended. There is no rebound, voluntary guarding, or rigidity. : Deferred. No Hopper. EXTREMITIES: Non-edematous and not cyanotic. No clubbing. Good capillary refill. SKIN: No skin breakdown. Procedure(s): Operative Note: DATE OF PROCEDURE: 11/12/24 SURGEON: HUSSEIN LAZARO MD PROCEDURE:Laparoscopic appendectomy. ANESTHESIA: General endotracheal. PREOPERATIVE DIAGNOSIS: Appendicitis. POSTOPERATIVE DIAGNOSIS: Acute appendicitis without perforation. DEVICES LEFT IN PLACE: None. FLUID AND BLOOD PRODUCTS: Per anesthesia report. BLOOD LOSS: Minimal. SPECIMENS REMOVED: Appendix. COMPLICATIONS: None immediate. SURGEON: Hussein Lazaro MD. DESCRIPTION OF PROCEDURE: The patient was brought to the operating room and pl aced on the operating table in supine position where general endotracheal anesthesia was achieved. We then proceeded to prep and drape the abdomen in sterile fashion, created a longitudinal incision at the umbilicus, and dissected down through the skin, subcutaneous tissue, and fascia to expose the fascia and incise the fascia at the midline using a #15 blade and entered the abdominal cavity. We introduced a trocar, obtained pneumoperitoneum, and then under direct visualization, we proceeded to place two 5-mm trocars, one in the suprapubic position and the other in the left lower quadrant. We then proceeded to evaluate the pelvis. We evaluated the appendix and it has changes of acute appendicitis. We therefore proceeded to release the appendix from all its adhesions using blunt and sharp dissection with a LigaSure and then proceeded to create a window at the base of the appendix with a [place] dissector and divided the mesoappendix with the LigaSure device. Once the base of the appendix was free, we then proceeded to divide the appendix with the [place] vascular load stapler. Placed the appendix into the Endo Catch bag. We i nspected the pelvis again and we did not find any signs of an abscess or any other signs of infection. Then, under direct visualization, we proceeded to remove our trocars and there was no bleeding from the abdominal wall. We removed the appendix from the abdomen using the EndoCatch bag and relieved the pneumoperitoneum. We closed the fascia at the umbilicus using a 0-Vicryl stitch in the [id number] fashion and then the skin was closed using a skin stapler. The patient tolerated the procedure well. I was present as well during the entire procedure. All counts were correct x 2 at the end of the procedure. HUSSEIN LAZARO MD Nov 12, 2024 12:56 Electronically Signed by: HUSSEIN LAZARO MD11/12/24 1256 Electronically Co-Signed by: Assessment/Plan: discharged dx' [ ]Acute appendicitis, POA] s/p appendectomy PLAN: [ ] ADMISSION DATE: 11/12/2024 DISCHARGE DATE: 11/13/2024 DISPOSITION: Home CONDITION: Stable LEAN CONSULTANT(S): Surgeon FOLLOW UP APPOINTMENT(S): Dr Lazaro one wk PROCEDURES: Appendectomy IMAGING (S) report attached to summary : MICROBIOLOGY: report attached to summary; ACTIVITY: aab nick HOME MEDICATIONS none profile NEW MEDICATIONS' advised [id number] Tylenol as directed for pain TEACHING: Keep incisions clean and dry wash with soap and water, no heavy lifting greater than 10 lb four weeks Emergency instructions: The patient was instructed to present to the nearest Emergency Department or call 911 should their symptoms return or worsen. Time spent arranging discharge: 31-60 minutes ATTESTATION BY PHYSICIAN I have seen and examined the patient. I reviewed the documentation, medical decision making, and treatment plan as noted by the mid-level provider above. I agree with the findings and plan of care. DELFINO OCASIO MD, ELIZABETH NP Nov 13, 2024 11:03
--- NOTE | 2024-11-13 11:24 | NUR ---
DISCHARGE DISCHARGE ORDERS OBTAINED FOR PATIENT TO BE DISCHARGED HOME OBTAINED. DISCHARGE INSTRUCTIONS AND DOCUMENTATION GIVEN TO PATIENT AT BEDSIDE . PER MRS. OLIVAS, PATIENT OK TO RETURN TO WORK ON 11/18/24. WORK EXCUSE GIVEN TO PATIENT. IV DISCONTINUED, CATHETER INTACT, NO S/S OF INFECTION NOTED TO SITE. PATIENT TOLERATED WELL. BANDS REMOVED PRIOR TO D/C. PENDING TRANSPORTATION.
[2024-11-13 11:46] VITALS: BP 101/59; PULSE 68; RESP 18; TEMP 97.7
== END 2024-11-13 12:32 | disposition home or self-care (01) | DRG 399 ==
LOC: EDH 16:32 → EDHIP 18:24 → 3CH 22:18
PROVIDERS: ADMIT Internal Medicine; ATTEND Internal Medicine
PROC: 0DTJ4ZZ Resection of Appendix, Percutaneous Endoscopic Approach (ICD-10-PCS; principal; 2024-11-12 12:01)
DX: K35.80 Unspecified acute appendicitis (principal); K38.1 Appendicular concretions; Z51.5 Encounter for palliative care
CPT/HCPCS: 36415; 71045; 74176; 80048; 80053; 81001; 83735; 84100; 85025; 85610; 85730; 86850; 86900; 86901; 93005; 99285; G0378; J1100; J2003; J2250; J2405; J2543; J2704; J2710; J3010; J3490; J7030; A4216; A4222; A4223; A4600; A4649; A4930; A6206; C1769; J0665